=== PATIENT | male | born 1970 | race Caucasian/White ===

== ENCOUNTER 2020-02-17 09:31 | Day surgery (SDC) | payer OTHER ==
[~2020-02-17] VITALS: Ht 193 cm; Wt 104.5 kg
[~2020-02-17 09:31] MED LIST: Cymbalta30 MG PO; ELIQUIS5 MG PO; ENTRESTO 97 MG PO; ENTRESTO 97 MG1 EACH PO; FURO40 PO; PRAV20 PO
[2020-02-17] MEDS ORDERED: METO50ER PO (10:35)
--- NOTE | 2020-02-17 10:49 | NUR ---
1000 PATIENT TO [facility] PRE OP AREA. [facility] ROOM BEING CLEANED. CHANGED INTO [facility], REVIEWED ALL HISTORY AND CONSENTS ON THE CHART FOR PATIENT AND MD TO SIGN. PIV STARTED IN RIGHT AC AND LR IVF HUNG. PATIENT MOVED TO [facility] ROOM AND ANESTHESIA IN TO CONSULT WITH PATIENT. CONSENT FOR ANSETHESIA SIGNED. DR. DAVIS ARRIVED AND CONSENT FOR [facility] SIGNED. 1025 PROCEDURE STARTED. ALL EMERGENCY EQUIPMENT AVAILABLE, O2, SUCTION, CRASH CART. PATIENT TOLERATED WELL.
--- NOTE | 2020-02-17 12:08 | NUR ---
1200 PATIENT AWAKE AND SPOKE WITH DR. DAVIS. VVS. TAKING ICE CHIPS AND SWALLOWING WITHOUT DIFFICULTY. RIDE CALLS AND WILL MEET AT THE [place] ENTRANCE. REVIEWED ALL DISCHARGE INSTRUCTIONS AND VERBALIZED UNDERSTANDING.
--- NOTE | 2020-02-17 12:19 | NUR ---
1215 PATIENT DISCHARGED HOME VIA WHEELCHAIR TO PRIVATE VEHICLE WITH GIRLFRIEND. REVIEWED ALL DISCHARGE INSTRUCTIONS AND GAVE COPIES TO THE PATIENT. TAKING ICE CHIPS WITHOUT DIFFICULTY.
== END 2020-02-17 12:15 | disposition home or self-care (01) ==
LOC: MHTC 09:31
DX: D15.1 Benign neoplasm of heart (principal); I10 Essential (primary) hypertension; E78.5 Hyperlipidemia, unspecified; F17.210 Nicotine dependence, cigarettes, uncomplicated; Z79.899 Other long term (current) drug therapy
CPT/HCPCS: 93312; 93325; J2250; J2704; J7120